=== PATIENT | male | born 1950 | race Caucasian/White ===

== ENCOUNTER → 2023-06-22 07:51 | Outpatient (CLI) | payer OTHER, SELFPAY ==
[2023-06-22 09:33] LABS: Appearance Urine UA CLEAR; Bilirubin Urine UA NEGATIVE (NEGATIVE); Color Urine UA YELLOW; Glucose Urine UA NEGATIVE (Negative); Ketones Urine UA NEGATIVE (NEGATIVE); Leukocyte Esterase Urine UA NEGATIVE (NEGATIVE); Nitrite Urine UA NEGATIVE (Negative); Occult Blood Urine UA NEGATIVE (Negative); Protein Urine UA NEGATIVE (Negative); Specific Gravity Urine UA 1.025 (1.000-1.035); Urobilinogen Urine UA 0.2 E.U./dL (0.2); pH Urine UA 5.5 (4.5-8.0)
[2023-06-22 09:36] LABS: Add Manual Diff / Slide Review NO; Basophils Absolute Auto 0 /uL (0-100); Basophils Percent Auto 0.5 % (0-2); Eosinophils Absolute Auto 100 /uL (0-450); Eosinophils Percent Auto 1.5 % (2-4); Hematocrit 44.2 % (41-53); Hemoglobin 15.4 g/dL (13.5-17.5); Lymphocytes Absolute Auto 2300 /uL (1100-4500); Lymphocytes Percent Auto 33.6 % (25-40); Mean Corpuscular HGB Conc 34.8 % (30-36); Mean Corpuscular Hemoglobin 30.9 PG (26-34); Mean Corpuscular Volume 88.9 fL (80-100); Monocytes Absolute Auto 700 /uL (0-900); Monocytes Percent Auto 10.5 % (3-14); Neutrophils Absolute Auto 3600 /uL (1500-7000); Neutrophils Percent Auto 53.9 % (50-75); Platelet Count 228 X10^3/uL (150-400); Red Blood Cell Count 4.98 X10^6/uL (4.5-5.9); Red Cell Distribution Width 13.1 % (11.6-14.8); White Blood Cell Count 6.8 X10^3/uL (4.5-11.0)
[2023-06-22 09:43] LABS: Hemoglobin A1C% w Est Avg Glu 5.4 % (4.0-6.0)
[2023-06-22 09:44] LABS: Bacteria Urine None Seen; Culture Indicated Urine Cult Not Indicated; Hyaline Casts Urine 0-1/LPF; Mucus Urine 2+ (Negative); RBC Urine None Seen (0-5/HPF); Squamous Epithelial Cell Urine 0-1 /HPF (0-5/HPF); WBC Urine None Seen (0-5/HPF)
[2023-06-22 09:56] LABS: Blood Urea Nitrogen 16 mg/dL (9-20); Calcium 9.9 mg/dL (8.4-10.2); Carbon Dioxide 26 mmol/L (22-32); Chloride 104 mmol/L (98-107); Estimated Glomerular Filt Rate > 60 mL/min (>60); Glucose 91 mg/dL (80-110); HEMOLYSIS 19 (0-50); Sodium 139 mmol/L (137-145)
== END ==
PROVIDERS: PCP Family Medicine; Referring Provider Orthopaedic Surgery; Visit Provider Orthopaedic Surgery
DX: Z01.818 Encounter for other preprocedural examination (principal); R73.9 Hyperglycemia, unspecified; Z01.812 Encounter for preprocedural laboratory examination; M25.551 Pain in right hip; N39.0 Urinary tract infection, site not specified
CPT/HCPCS: 36415; 80048; 81001; 83036; 85025; 93005; 93010

== ENCOUNTER 2024-01-26 09:01 | Day surgery (SDC) | payer MEDICARE, SELFPAY ==
[2024-01-18 09:33] VITALS: BMI 31.0
[2024-01-26] VITALS (12 sets, daily range): BP systolic 107–134; BP diastolic 72–88; PULSE 59–76; RESP 9–19; TEMP 35.7–36.7; O2SAT 94–99; BMI 29.9
--- NOTE | 2024-01-26 | DI.RAD.S_ITS ---
PROCEDURE: XR HIP W PEL IF DONE RT 2V INDICATIONS: RIGHT HIP TECHNIQUE: AP pelvis and lateral view of the hip acquired. COMPARISON: [facility], CR, XR HIP W PEL IF DONE RT 2V, 01/26/2024, 12:00. FINDINGS: Bones: Patient is status post right hip arthroplasty, with hardware components in expected positions. The hip joint appears congruent. The visualized bony structures appear intact. Left hip moderate arthritic changes Soft tissues: Overlying postoperative changes are noted. No suspicious soft tissue densities. IMPRESSION: Expected post-operative appearance of a hip arthroplasty. Approved by: Jak Belle M.D. on 01/26/2024 at 14:02
--- NOTE | 2024-01-26 07:53 | DI.RAD.S_ITS ---
PROCEDURE: XR HIP W PEL IF DONE RT 2V INDICATIONS: bleeding TECHNIQUE: 4 intraoperative views of the right hip. COMPARISON: [facility], CR, XR HIP W PEL IF DONE RT 2V, 01/26/2024, 13:33. [facility], CR, XR PELVIS WITH LATERAL HIP RIGHT, 01/08/2024, 10:52. FINDINGS: Right hip arthroplasty projects in the expected location. IMPRESSION: Intraoperative guidance provided. Dictated by: Madan Mederos M.D. on 01/26/2024 at 20:06 Approved by: Madan Mederos M.D. on 01/26/2024 at 20:08
[2024-01-26] MEDS: ACETAMINOPHEN 325 MG TABLET 975 MG PO (09:24)
[2024-01-26] MEDS: LACTATED RINGERS 1,000 ML 42 ML IV ×2 (09:24→11:44)
[2024-01-26] MEDS: CELECOXIB 200 MG CAPSULE PO (09:25)
[2024-01-26] MEDS: VANCOMYCIN 1,000 MG/200 ML PIGGYBACK 200 MG IV (09:26)
--- NOTE | 2024-01-26 09:45 | PM.PREOP ---
Pre-operative Note Interval Note History & Physical reviewed/Exam performed by Physician: Yes Changes to H&P: No
--- NOTE | 2024-01-26 09:45 | PM.OP.1 ---
Operative Date/Time/Diagnoses Date of procedure: 01/26/24 Time of procedure: 11:20 Pre-op diagnosis: right hip OA Post-op diagnosis: same Procedure & Clinicians Procedure: Right total hip arthroplasty anterior approach Same procedure as scheduled: Yes Indications: The patient has had progressively worsening right hip pain with radiographic changes consistent with arthritis. Non-operative management has failed and the patient has requested total hip replacement. The risks, benefits and alternatives to surgery were discussed with the patient prior to proceeding. Risks discussed included, but were not limited to, failure to relieve pain, leg length discrepancy, dislocation, stiffness, infection, nerve damage, deep venous thrombosis, pulmonary embolism, stroke, coma, heart attack, permanent paralysis and , as well as the potential need for eventual revision of the prosthetic. Surgeon: Kelly Solor[facility] [employer] Assistant: Phu Romero Anesthesia Type: General and Spinal Operative Notes Findings: Severe right hip OA, adequate stability, adequate bone Closure Type: primary Specimen(s): none sent Prosthetic devices, grafts, tissues, transplants, or devices: Solorzano and nephew 60 R3, neutral poly liner,one 6.5 mm screw, polar stem size 3 standard offset with collar, 40 by +0 [facility], Estimated Blood Loss (mL): 250 Blood products transfused: none Procedure in detail: The patient was brought to the operating room. Patient was carefully positioned in the supine position. Time-out was performed and antibiotics were given. Anesthesia was induced. He was positioned in the on the table in order to allow hyperextension of the hip. The right lower extremity was prepped and draped in a standard sterile fashion. An anterior right hip incision was made 1 fingerbreadth lateral to the anterior superior iliac spine and extended distally towards the greater trochanter. Dissection was carried out through skin and subcutaneous tissues. Superficial hemostasis was achieved. The fascia over the tensor fascia lio was defined and incised with a knife. Two Allis clamps were used to grasp the fascia. Tensor fascia lio was retracted laterally. A gelpi retractor was placed. Dissection was carried out down along the neck. The circumflex vessels were carefully identified and cauterized with the Aqua Mantis. A PA was used during the procedure was essential for intraoperative retraction safe implantation of the components. There was good visualization of the femoral neck. A Cobra was placed superior to the neck and the gluteus fibers were carefully stripped from that superior aspect of the capsule. A 2nd retractor was placed along the inferior aspect of the neck. The rectus insertion along the capsule was partially released. A 3rd retractor that was then gently placed over the rim of the acetabulum under the rectus. Capsule was carefully incised and released from the intertrochanteric line circumferentially superior to the mid sagittal line and inferiorly to the mid sagittal line until the lesser trochanter was palpable. A tag stitch was placed both in the superior and inferior limb of the capsular insertion. Along the acetabulum capsule was also released up to the mid sagittal 12:00 position. A portion of the labrum was resected. A saw was used to perform an osteotomy at the level of the intertrochanteric line and the junction of the superior femoral neck leaving approximately 1 finger breath of residual inferior neck above the lesser trochanter. A 2nd cut was made along the femoral neck at the base of the head and a napkin ring of neck was removed. Corkscrew was placed in the femoral head and the head was removed without difficulty. Retractors were then repositioned around the acetabulum. Residual labrum was resected and additional osteophytes were removed. A reamer that was 4 mm below the templated size was placed by hand in the acetabulum and it was reamed to centralize the acetabulum. It was then reamed up to 2 under the templated size and fluoroscopy was brought in to confirm the position of the reaming and depth of reaming. I reamed 1 under the anticipated size. A trial cup was placed and noted that it was appropriately sized and fluoroscopy confirmed position and depth. The component was open and inserted without difficulty fluoroscopic imaging was used to confirm that the cup had been adequately seated and was well positioned. It was further stabilized with a single screw. Neutral poly liner was placed. The cup was tested and noted to be stable. Attention was then directed to the femur. The femur was gently hyperextended additional capsular release was performed as needed in order to allow adequate visualization of the proximal femur with elevation of the femur. Patient was placed in a hyperextended slightly adducted position with maximum external rotation. Box osteotome was used to check for any residual neck as well as sclerotic bone along the trochanter. [place] pepper was placed in the femur. Additional broaching was performed. Canal finder was used to determine the alignment of the canal and position. Size 1 broach was placed. The canal was then appropriately broached up to the templated size as long as there was adequate stability of the broach and serial advancement of the broach without excessive impingement. Specific attention was directed at avoiding varus attempting to direct the distal aspect of the broach more anteriorly and avoiding excessive anteversion. Trial reduction showed acceptable range of motion, good stability, no posterior impingement, sabianist of leg length and appropriate lateral shuck. I also hyperflexed the hip and checked that there was no impingement anteriorly and there was good stability with flexion, adduction and internal rotation. Marcaine and Exparel were injected.. The stem was placed without difficulty. Repeat trial reduction and x-ray showed acceptable overall position, length, and no evidence of the femoral fracture. Final head was placed. Wound was meticulously irrigated with normal saline. The hip was reduced and additional Exparel and Marcaine were injected. The capsule was closed with interrupted nonabsorbable sutures. The fascia of the tensor was closed with interrupted and running Vicryl. No drain was placed. Any tensor fascia lio muscle that appeared to be contused or injured which was a minimal amount was carefully resected. Capsule around the tensor was injected with Exparel and Marcaine. The skin was closed with barbed stitches for the subcutaneous tissue and skin. We also used surgical glue. The wound was dressed sterilely. Brief Betadine soak was also used and was meticulously irrigated with normal saline. Patient was transferred to recovery room in satisfactory condition. Complications: none Post-operative Condition: stable Disposition: same day surgery Plan for aftercare: The patient will be maintained on a standard total hip replacement protocol with weight bearing as tolerated and anterior hip precautions. The patient will receive Aspirin and sequential compression devices for DVT prophylaxis. The patient will be discharged home when safe for the home environment.
--- NOTE | 2024-01-26 10:11 | SUR.OPER ---
Supine on padded Carroll table with bilateral legs secured in padded positioning boots and suspended in positioning spars, operative leg in traction per surgeon. Head on one pillow. Arm on non-operative side secured on padded armboard <90 degrees abduction. Arm on operative side padded and resting across chest then secured with tape over sheet. Padded perineal post in place per surgeon.
[2024-01-26] MEDS: CEFAZOLIN 2 GM/100 ML PREMIX 100 ML IV ×2 (10:57→18:14)
[2024-01-26] MEDS: TRANEXAMIC ACID 1,000 MG VIAL 2000 MG INJ ×2 (11:04→13:01)
[2024-01-26] MEDS: BUPIVACAINE 0.25% (PF) 60 ML, EPINEPHrine 0.3 MG INJ (11:13)
[2024-01-26] MEDS: BUPIVACAINE LIPOSOME 266 MG/20 ML VIAL INJ (13:00)
--- NOTE | 2024-01-26 13:56 | SUR.PHASEI ---
Report called to Kelly Samano
--- NOTE | 2024-01-26 14:13 | SUR.PHASEI ---
Patient transferred to the floor with his belongings bag, CPAP, hearing aids. Bedside report given to Kelly. VS stable. IV patent. Right hip dressing CDI.
--- NOTE | 2024-01-26 14:55 | PT.IIE ---
Current Diagnoses Unilateral primary osteoarthritis, right hip (01/26/24) Surgery Performed Operation Date: 01/26/24 10:45 Actual Procedures p Total Hip Arthroplasty/Anterior Approach(Right) - Kelly Solorzano MD Surgical History (Last Reviewed 01/26/24 @ 09:31 by Delia Thomas, RN) Hx of arthroscopy of left knee Medical History (Last Reviewed 01/26/24 @ 09:31 by Delia Thomas, RN) Enlarged prostate Hearing impaired History of COVID-19 (~2020) HLD (hyperlipidemia) HTN (hypertension) RADHA on CPAP Osteoarthritis TIA (transient ischemic attack) (06/2023) Physical Therapy Inpatient Evaluation/Re-Eval M1 PT/OT-IP Prior Functional Status Start: 01/26/24 16:02 Freq: NEEDED Status: Active Protocol: Document 01/26/24 14:55 AB (Rec: 01/26/24 16:28 AB [id number]) Medical Review Prior Functional Status Medical History Reviewed Yes Communication able to make needs known Mobility and Gait pt stated that he was independent with all mobilities and ambulation without AD Social History Household Members spouse Living Arrangements House Number of Floors (Floors) One Floor Number of Stairs To Enter/Railing? 1 step to enter Home Environment Standard Height Toilet,Tub/ Shower Home Equipment Front Wheel Walker,Straight Cane,Raised Toilet Seat w/ Armrests,Tub Transfer Bench, Hand Held Shower M2 PT-IP Current Condition Start: 01/26/24 16:02 Freq: NEEDED Status: Active Protocol: Document 01/26/24 14:55 AB (Rec: 01/26/24 16:28 AB [id number]) Physical Therapy Current Condition Current Condition Evaluation Date 01/26/24 Treatment Diagnosis s/p R RADHA anterior; difficulty in walking Onset Date 01/26/24 M3 PT-IP Subjective Start: 01/26/24 16:02 Freq: NEEDED Status: Active Protocol: Document 01/26/24 14:55 AB (Rec: 01/26/24 16:28 AB [id number]) Subjective Physical Therapy Visit Type Type Initial Evaluation Visit Start Time 14:55 Visit Stop Time 15:40 Number of SLOT MACHINE REPAIRER Visits 0 Physical Therapy Visit Comments Patient Comments agreeable to do PT Therapy Pain Assessment Pain When Pain Assessed At Rest Pain Present Pain Present Denied Pain M4 PT-IP Mobility and Gait Start: 01/26/24 16:02 Freq: NEEDED Status: Active Protocol: Document 01/26/24 14:55 AB (Rec: 01/26/24 16:28 AB [id number]) PT-Bed Mobility Assessment Supine to Sit Supine to Sit Standby Assistance PT-Transfer Assessment Sit to and From Stand Sit to and from Stand Minimal Assistance,1 Person Assistance,Use of Upper Extremities Equipment Transfer Assistive Device Gait Belt,Front Wheeled Walker Orthotic/Prosthetic Devices or Brace: No Transfers Transfer Destination Chair Transfer Technique ambulated Transfer Ability Level of Assist Moderate Assistance,1 Person Assistance,Use of Upper Extremities Comments Mobility Comments pt supine in bed and spouse in room. pt agreed to do PT. pt alert but with confusion and requires increase time to respond to questions and instructions. pt's spouse answered most of PT's questions. obtained PLOF and home set up. post-op folder provided and reviewed with pt. educated pt and spouse regarding anterior hip precautions for RLE. pt unable to recall precautions even after education. pt is impulsive and requires one step instructions with all tasks and max cues for hip precautions. BP: 133/88 UT 60. pt completed supine to sit SBA . able to sit on EOB SBA. completed sit to stand min A and max cues. pt ambulated to the chair ~ 12 ft using FWW mod A and max cues. pt agreed to sit up on the chair. positioned pt on the chair. call light and table placed within reach. informed spouse regarding caregiver training and agreed. setup at ~9am tomorrow. Gait Assessment Gait Gait Assistance Required: Moderate Assistance,1 Person Assist Distance (Feet) 12 Able to Maintain Weight Bearing Status Yes During Gait Assistive Devices Assistive Device Gait Belt,Front Wheeled Walker Orthotic/Prosthetic Devices or Brace: No Gait Deviations General Gait Pattern Decreased Stride Length, Decreased Feet Clearance Factors Limiting Gait Function Factors Limiting Gait Function Decreased Activity Tolerance, Decreased Strength,Difficulty Following Directions,Limited Range of Motion,Pain,Poor Balance,Poor Safety Awareness PT-Balance Assessment Sitting Balance and Reactions Static Sitting Balance Ability Good Dynamic Sitting Balance Ability Good Standing Balance and Reactions Static Standing Balance Ability Fair Dynamic Standing Balance Ability Fair Device Used FWW M5 PT-IP Objective Assessments Start: 01/26/24 16:02 Freq: NEEDED Status: Active Protocol: Document 01/26/24 14:55 AB (Rec: 01/26/24 16:28 AB [id number]) Orientation Orientation/Cognition Level of Alertness Alert Orientation Name Language Function Ability Hard of Hearing Safety Awareness Decreased Safety Awareness Memory Description Short Term Impaired Comments with confusion Strength Lower Extremity Strength Assessment Within Functional Limits Muscle Tone Muscle Tone WNL Yes M6 PT-IP Treatment Start: 01/26/24 16:02 Freq: NEEDED Status: Active Protocol: Document 01/26/24 14:55 AB (Rec: 01/26/24 16:28 AB [id number]) Physical Therapy Treatment Education Education Provided Precautions,Weight Bearing Status,Post-Op Packet,Safety M7 PT-IP Assessment and Plan Start: 01/26/24 16:02 Freq: NEEDED Status: Active Protocol: Document 01/26/24 14:55 AB (Rec: 01/26/24 16:28 AB [id number]) PT Summary Assessment and Plan Potential Rehabilitation Potential Fair Status of Condition at Evaluation Evolving Summary Impairments Pain,ROM,Strength,Balance, Coordination,Cognition,Bed Mobility,Transfers,Gait, Activity Tolerance Assessment Summary Pt is a 73 y/o M s/p R RADHA anterior approach POD 0. pt has R hip anterior precautions and is WBAT. pt requiring min to mod A with mobility but max cues needed for precautions and safety. pt with decrease carryover of precautions education and even with one step instructions provided , was not able to consistently follow instructions. caregiver training set up for tomorrow at ~ 9 am. will continue to assess. Goals Bed Mobility Goal Standby Assistance Transfer Goal Standby Assistance,Front Wheeled Walker Gait Goal Standby Assistance,Front Wheel Walker Gait Distance 200 Other Goals improve bed mobility, transfers, ambulation using FWW ~ 300 ft mod I up/down 1 step using FWW SBA Days to Meet Goals 5 Frequency of Treatment Frequency Of Treatment Twice a Day Treatment Plan Physical Therapy Treatment Plan Bed Mobility Training,Transfer Training,Gait Training, Therapeutic Exercise,Balance Retraining,Post Op Education, Discharge Planning,Hot or Cold Pack,Neuromuscular Re-ed, Coordination Retraining,Manual Therapy Other Recommendations and Next Treatment caregiver trainin01/27/24 ~ Focus 9 am Precautions Anterior Hip Precautions No Hip Extension,No Hip External Rotation Weight Bearing Status Weight Bearing Status Weight Bear as Tolerated Allowed Weight Bearing Amount (enter % RLE WBAT or #) (%) Recommendations To Nursing Amount of Assist Needed 1 Person Assist Discharge Recommendations PT Discharge Recommendations Home with 24/7 Assist Available,Home Health, Outpatient PT Transportation Needs at Discharge Private Vehicle,Wheelchair/ Cabulance
--- NOTE | 2024-01-26 15:04 | PC.NURSE ---
Pt to room 219 via bed from PACU. Pt is awake and alert. IVF infusing as ordered. SCD's on and running. Spouse Lucia is at the bedside. Bed alarm on for safety. Pt denies pain, nausea, or shortness of breath. O2 sat 99% on RA. Pt oriented to room, call light, bed controls and tv controls. Pt agrees to call for assistance as needed and to not get out of bed without help.
--- NOTE | 2024-01-26 16:00 | OT.IP.EVAL ---
Current Diagnoses Unilateral primary osteoarthritis, right hip (01/26/24) Surgery Performed Operation Date: 01/26/24 10:45 Actual Procedures p Total Hip Arthroplasty/Anterior Approach(Right) - Kelly Solorzano MD Past Medical History (Last Reviewed 01/26/24 @ 09:31 by Delia Thomas, RN) Enlarged prostate Hearing impaired History of COVID-19 (~2020) HLD (hyperlipidemia) HTN (hypertension) RADHA on CPAP Osteoarthritis TIA (transient ischemic attack) (06/2023) Surgical History (Last Reviewed 01/26/24 @ 09:31 by Delia Thomas, RN) Hx of arthroscopy of left knee Occupational Therapy Inpatient Evaluation/Re-Eval M1 PT/OT-IP Prior Functional Status Start: 01/26/24 16:02 Freq: NEEDED Status: Active Protocol: Document 01/26/24 14:55 AB (Rec: 01/26/24 16:28 AB [id number]) Medical Review Prior Functional Status Medical History Reviewed Yes Communication able to make needs known Mobility and Gait pt stated that he was independent with all mobilities and ambulation without AD Social History Household Members spouse Living Arrangements House Number of Floors (Floors) One Floor Number of Stairs To Enter/Railing? 1 step to enter Home Environment Standard Height Toilet,Tub/ Shower Home Equipment Front Wheel Walker,Straight Cane,Raised Toilet Seat w/ Armrests,Tub Transfer Bench, Hand Held Shower M1 PT/OT-IP Prior Functional Status Start: 01/26/24 16:22 Freq: NEEDED Status: Active Protocol: Document 01/26/24 16:23 [facility] (Rec: 01/26/24 16:36 [facility] [id number]) Medical Review Prior Functional Status Communication Pt slow to respond and initiate with his thinking. Mobility and Gait Pt did not use a device but had pain. Activities of Daily Living and IADL's Pt had pain for ADL and IADL needs. Prior Functional Level (Other details) Pt has recent history of TIA 06/25 and at time slower cognitively per . Social History Household Members spouse Living Arrangements House Number of Floors (Floors) Two Floors Number of Stairs To Enter/Railing? Only a threshold to enter the house. Pt has a step to get into his truck. Home Environment Standard Height Toilet,Tub/ Shower Home Equipment Front Wheel Walker,Raised Toilet Seat w/Armrests,Tub Transfer Bench,Hand Held Shower,Leg Data Warehousing Manager,Long Handled Sponge,Long Handled Shoe Horn ,Field Cashier,Sock Aid Additional Social History Comment Pt has a supportive to assist. M2 OT-IP Current Condition Start: 01/26/24 16:22 Freq: Status: Active Protocol: Document 01/26/24 16:23 [facility] (Rec: 01/26/24 16:36 [facility] [id number]) Occupational Therapy Current Condition Current Condition Evaluation Date 01/26/24 Treatment Diagnosis S/P R RADHA Anterior approach Diagnosis Onset Date 01/26/24 Post Operative Precautions Anterior Hip Precautions No Hip Extension,No Hip External Rotation M3 OT- IP Subjective and Pain Start: 01/26/24 16:22 Freq: Status: Active Protocol: Document 01/26/24 16:23 [facility] (Rec: 01/26/24 16:36 [facility] [id number]) OT- Subjective Occupational Therapy Visit Type Type Initial Evaluation Visit Start Time 15:35 Visit Stop Time 16:27 Occupational Therapy Visit Comments Patient Comments Pt agreed to get up and pt's present. Patient/Caregiver Goals To go home. OT Pain Assessment Pain When Pain Assessed At Rest Pain Present Pain Present Pain Reported Location Left Hip Intensity 7 Scale Used Numeric (0 - 10) M4 OT- IP ADL's Start: 01/26/24 16:22 Freq: Status: Active Protocol: Document 01/26/24 16:23 [facility] (Rec: 01/26/24 16:36 [facility] [id number]) OT [id number] Comments OT Self-Feeding Comments Not at meal time. OT ADL-Grooming Comments OT Grooming Comments Not performed. OT ADL-Oral Care Comments Oral Care Comments Not performed. OT ADL-Dressing General Eval Lower Body Dressing Ability Minimal Assistance,Maximum Assistance Comments OT Dressing Comments Able to practice use of hose inspector and sock aid for LB dressing needs. Educated pt to be mindful of his RLE postioning needs for ADL's. OT ADL-Toileting Comments OT Toileting Comments Suggested to use a urinal at night or have his assist him to the bathroom. OT ADL-Bathing Comments OT Bathing Comments Went over how the tub bench works and how to get in and out with his . Also suggested a HHSP with a on/off switch may be best. Educated of covering the bandage for showering needs. M5 OT- IP IADL's Start: 01/26/24 16:22 Freq: Status: Active Protocol: Document 01/26/24 16:23 [facility] (Rec: 01/26/24 16:36 [facility] [id number]) OT-Instrumental Activities of Daily Living Deficits IADL Deficits Identified Deficits Home Safety Awareness Awareness of Need for Assistance at Home Decreased Awareness Home Safety Comments Pt is a bit impulsive and still groggy at this time. Medication Management Medication Management Caregiver Administers Money Management Money Management Caregiver Provides Assistance Meal Preparation Meal Preparation Caregiver Provides Assist Planning Management It Specialist Planning Management It Specialist Caregiver Provides Assist M6 OT- IP Functional Cognition Start: 01/26/24 16:22 Freq: Status: Active Protocol: Document 01/26/24 16:23 [facility] (Rec: 01/26/24 16:36 [facility] [id number]) Cognitive Factors Limiting Selfcare Function Cognitive Ability Level of Alertness Confusional State Patient Orientation Name Attention Span Ability Capable of Focused Attention, Unable to Sustain Attention Ability to Follow Commands Able to Follow One Step Commands with Increased Time, Able to Follow One Step Commands with Repetition Memory Description Short Term Impaired Cognitive Comments Cognitive Assessment Comments Pt is a bit groggy from surgery today, impulsive and needing cues to recall his hip precautions and FWW safety. OT- Vision and Hearing OT- Hearing Assessment OT- Hearing Assessment Hearing Impaired,Use of Hearing Aids OT- Vision Assessment Visual Acuity Glasses For Reading,Contact Lenses Visual Attentiveness WFL Occular Pursuits WFL M7 OT- IP Mobility and Balance Start: 01/26/24 16:22 Freq: Status: Active Protocol: Document 01/26/24 16:23 [facility] (Rec: 01/26/24 16:36 [facility] [id number]) OT-Transfer Assessment Sit to and From Stand Sit to and from Stand Minimal Assistance Transfers Transfer Ability Minimal Assistance,Moderate Assistance Technique Transfer Destination Car Transfer Technique Stand Step Pivot Devices Transfer Assistive Devices Gait Belt,Front Wheeled Walker Comments Mobility Comments SHEELA to stand to the FWW. Able to educated his to crescencio/ doff the gait belt. At this time pt still simone at his RLE and cues to tighten his quad as pt leaning to the right with the FWW. MODA overall with the FWW especially due to poor ssafety awareness at this time. OT- Balance Assessment Sitting Balance and Reactions Static Sitting Balance Ability Good Dynamic Sitting Balance Ability Good Standing Balance and Reactions Static Standing Balance Ability Fair Dynamic Standing Balance Ability Poor M8 OT- IP Objective Assessments Start: 01/26/24 16:22 Freq: Status: Active Protocol: Document 01/26/24 16:23 [facility] (Rec: 01/26/24 16:36 [facility] [id number]) OT Gross Range of Motion Upper Extremity Range of Motion Assessment Within Functional Limits OT Strength Upper Extremity Strength Assessment Within Functional Limits M9 OT- IP Assessment and Plan Start: 01/26/24 16:22 Freq: Status: Active Protocol: Document 01/26/24 16:23 [facility] (Rec: 01/26/24 16:36 [facility] [id number]) OT Summary Assessment and Plan Potential Rehabilitation Potential Excellent Analytic Complexity at Evaluation Low Summary OT Impairments Pain,Strength,Balance, Functional Cognition, Functional Mobility,Grooming, Dressing,Toileting,Bathing, Toilet Transfers,Shower Transfers,Activity Tolerance Progress Towards Goals Progressing Toward Goals,Slow Progress due to Medical Issues Assessment Summary Pt low complexity and still groggy and weak from surgery today. Able to initiate caregiver training with pt's . Pt will benefit from more practice and also caregiver for his as well . Pt to go home with 24/7 available assist and outpt PT. Goals Grooming Goal Independent Dressing Goal Standby Assistance Toileting Goal Standby Assistance Bathing Goal Standby Assistance Toilet Transfer Goal Independent Shower Transfer Goal Standby Assistance Patient/Caregiver Education Goal Demonstrate Energy Conservation and Pacing, Caregiver Independent Assisting Patient Days to Meet Goals 10 Frequency of Treatment Frequency Of Treatment Once a Day Treatment Plan OT Treatment Plan ADL Training,Functional Cognition Training,Functional Mobility,Patient/Family Education,Discharge Planning Other Treatment Recommendations and Next Practice anterior precautions Treatment Focus for ADL needs. Discharge Recommendations OT Discharge Recommendations Home with 24/7 Assist Available,Outpatient PT Transportation Needs at Discharge Private Vehicle
[2024-01-26] MEDS: ATORVASTATIN 20 MG TABLET 80 MG PO (16:39)
[2024-01-26] MEDS: OXYCODONE IR 5 MG TABLET PO ×2 (18:48→21:49)
[2024-01-26] MEDS: LACTATED RINGERS 1,000 ML 100 ML IV (20:12)
[2024-01-26] MEDS: DOCUSATE 100 MG CAPSULE PO (21:07)
[2024-01-26] MEDS: TAMSULOSIN 0.4 MG CAPSULE 0.8 MG PO (21:07)
[2024-01-26] MEDS: ACETAMINOPHEN 325 MG TABLET 650 MG PO (21:07)
[2024-01-26] MEDS: ASPIRIN EC 81 MG TABLET PO (21:07)
[2024-01-27] VITALS: BP 119/68; PULSE 73; RESP 18; TEMP 36.1; O2SAT 96
[2024-01-27] MEDS: OXYCODONE IR 5 MG TABLET PO ×3 (00:49→07:54)
[2024-01-27] MEDS: CEFAZOLIN 2 GM/100 ML PREMIX 100 ML IV (02:09)
[2024-01-27] MEDS: ACETAMINOPHEN 325 MG TABLET 650 MG PO (04:11)
[2024-01-27 05:57] VITALS: BP 111/67; PULSE 70; RESP 17; TEMP 36.2; O2SAT 96
[2024-01-27 06:42] LABS: Hematocrit 35.5 % (41-53); Hemoglobin 12.4 g/dL (13.5-17.5)
--- NOTE | 2024-01-27 07:10 | P.DS_ITS ---
History of Present Illness History of Present Illness Date Patient Seen: 01/27/24 Time Patient Seen: 07:10 Chief complaint: Hip pain Narrative: Patient states his hip pain was moderate to severe overnight. Patient patient's pain is currently [id number]. Patient has his home to help him. Denies any fever chills. No nausea or vomiting. Discharge Providers Provider Discharge Date: 01/27/24 Primary care physician: Richard Beal MD Consults: 01/26/24 07:52 Consult to Anesthesiology Routine Comment: Consulting Provider: Anesthesiologist Reason for consultation: Regional block for post operative pain control 01/26/24 14:02 Consult to Discharge Planning Routine Comment: Consult to Occupational Therapy Evaluate & Treat Comment: Physician Instructions: Evaluate and treat Consult to Physical Therapy Evaluate & Treat Comment: Physician Instructions: post op RADHA protocol Discharge provider: Phu Romero PA-C Summary Hospital Course Discharge Diagnosis: Right hip osteoarthritis Hospital Course: Right total hip arthroplasty anterior approach Same procedure as scheduled: Yes Indications: The patient has had progressively worsening right hip pain with radiographic changes consistent with arthritis. Non-operative management has failed and the patient has requested total hip replacement. The risks, benefits and alternatives to surgery were discussed with the patient prior to proceeding. Risks discussed included, but were not limited to, failure to relieve pain, leg length discrepancy, dislocation, stiffness, infection, nerve damage, deep venous thrombosis, pulmonary embolism, stroke, coma, heart attack, permanent paralysis and , as well as the potential need for eventual revision of the prosthetic. Surgeon: Kelly Solorzano Senior Sql Developer: Phu Romero Anesthesia Type: General and Spinal Operative Notes Findings: Severe right hip OA, adequate stability, adequate bone Closure Type: primary Specimen(s): none sent Prosthetic devices, grafts, tissues, transplants, or devices: Solorzano and nephew 60 R3, neutral poly liner,one 6.5 mm screw, polar stem size 3 standard offset with collar, 40 by +0 femoral head take care mark, Estimated Blood Loss (mL): 250 Blood products transfused: none Patient admitted for right total hip arthroplasty, anterior approach. Patient consented to the same. Patient had right total hip arthroplasty anterior approach January 26, 2024. Patient back in his room recovering well and as is stable condition. Patient is able to urinate on his own. He has his home to assist him. Patient will be on standard total hip protocol with anterior hip precautions. Patient will mobilize with physical therapy and be discharged home today if safe for home environment. Status at Discharge Cognitive/behavioral status at discharge: at baseline, oriented Functional status at discharge: uses cane/walker Overall status at discharge: patient is progressing back to baseline Exam Vital Signs (past 8 hours): - 01/27/24 00:00 01/27/24 05:57 Temperature 96.9 F L 97.1 F L Pulse Rate 73 70 Respiratory Rate 18 17 Blood Pressure 119/68 111/67 Pulse Oximetry 96 96 Oxygen Flow Rate 0 0 Oxygen Delivery Method Room Air Oxygen Flow Rate 0 Narrative Exam Narrative: 73-year-old male resting comfortably in bed in no apparent distress. Right hip dressing is clean, dry and intact. Motor functions intact bilateral lower extremities. Sensation grossly intact to light touch bilateral lower extremities. Const General: cooperative and comfortable Nutritional Appearance: average body habitus Orientation: alert Resp Effort & Inspection: normal respiratory effort and able to speak in complete sentences Objective Labs 01/27/24 05:40 Labs: Laboratory Results - last 24 hr 01/27/24 05:40 Hgb 12.4 L Hct 35.5 L PFSH Medical History History of COVID-19 (~2020) Osteoarthritis HLD (hyperlipidemia) HTN (hypertension) Hearing impaired RADHA on CPAP Enlarged prostate TIA (transient ischemic attack) (06/2023) Surgical History Hx of arthroscopy of left knee Social History household members: spouse Smoking Status: Never smoker alcohol intake: current Discharge Assessment & Plan Assessment and Plan Assessment: Patient progressing as expected status post right total hip arthroplasty, anterior approach Plan of Treatment: Multimodal pain management Aspirin for DVT prophylaxis Weightbearing as tolerated, anterior hip precautions Follow up in 2 weeks as scheduled Discharge home today after physical therapy if safe for home environment Discharge Plan Discharge orders & Medications Discharge Orders: Discharge (Order); Ordered 01/27/24 Ordered By: Phu Romero Prescriptions: New acetaminophen 325 mg Tablet 650 mg PO Q6H PRN (Reason: Fever/Mild Pain (1-3)) Qty: 60 0RF aspirin 81 mg Tablet,Delayed Release (Dr/Ec) 81 mg PO BID Qty: 60 0RF docusate sodium 100 mg Capsule 100 mg PO BID Qty: 20 0RF ibuprofen 400 mg Tablet 400 mg PO Q4H PRN (Reason: Pain, Mild (1-3)) Qty: 60 0RF oxycodone 5 mg tablet 5 mg PO Q4H PRN (Reason: pain) Qty: 40 0RF Continued atorvastatin 80 mg Tablet 80 mg PO QPM cetirizine [Zyrtec] 10 mg Tablet 10 mg PO DAILY tamsulosin 0.4 mg Capsule 0.8 mg PO BEDTIME lisinopril 10 mg Tablet 10 mg PO DAILY finasteride 5 mg Tablet 5 mg PO DAILY acetaminophen 325 mg Capsule 325 mg PO Q4-6H PRN (Reason: Pain) Discontinued aspirin [Aspir-81] 81 mg Tablet,Delayed Release (Dr/Ec) 81 mg PO DAILY Follow up/Referrals: Richard Beal MD [Primary Care Provider] - Kelly Solorzano MD [Physician] - 02/08/24 11:00 am (Follow up w/ Ely Helms PA-C, at [facility] in [place].) Diet/Activity/Treatments Diet: Diet as Tolerated Activity: Weightbearing as tolerated. Anterior hip precautions. Skin/Wound/Dressing Care Report to your healthcare provider any signs of infection, such as:: chills, fever, night sweats, unusual drainage and unusual redness Dressing: May shower. Leave dressing in place until follow up in office. No bathing or otherwise soaking incision. Call the office if the dressing becomes saturated inside. Visit Report/Discharge Packet Instructions: DI for Prescription Opioid Use Stand Alone Forms: Patient Portal/API, Surgery Discharge Discharge Data Primary Care Provider: Richard Beal Attending Provider: Kelly Solorzano Quality VTE Deep Vein Thrombosis/Pulmonary Embolism Present on Admission: No
[2024-01-27] MEDS: DOCUSATE 100 MG CAPSULE PO (07:53)
[2024-01-27] MEDS: IBUPROFEN 400 MG TABLET PO (07:53)
[2024-01-27] MEDS: ASPIRIN EC 81 MG TABLET PO (07:54)
[2024-01-27 08:00] VITALS: BP 150/88; PULSE 68; RESP 16; TEMP 36.2; O2SAT 97
[2024-01-27 08:16] VITALS: BP 150/88
[2024-01-27] MEDS: lisinopriL 10 MG TABLET PO (08:16)
[2024-01-27] MEDS: FINASTERIDE 5 MG TABLET PO (08:16)
[2024-01-27] MEDS: LORATADINE 10 MG TABLET PO (08:17)
--- NOTE | 2024-01-27 09:00 | PT.IPTN ---
Current Diagnoses Unilateral primary osteoarthritis, right hip (01/26/24) Surgery Performed Operation Date: 01/26/24 10:45 Actual Procedures p Total Hip Arthroplasty/Anterior Approach(Right) - Kelly Solorzano MD Physical Therapy Treatment Note M2 PT-IP Current Condition Start: 01/26/24 16:02 Freq: NEEDED Status: Active Protocol: Document 01/26/24 14:55 AB (Rec: 01/26/24 16:28 AB [id number]) Physical Therapy Current Condition Current Condition Evaluation Date 01/26/24 Treatment Diagnosis s/p R RADHA anterior; difficulty in walking Onset Date 01/26/24 M3 PT-IP Subjective Start: 01/26/24 16:02 Freq: NEEDED Status: Active Protocol: Document 01/27/24 09:00 AB (Rec: 01/27/24 12:54 AB [id number]) Subjective Physical Therapy Visit Type Type Treatment Note Visit Start Time 09:00 Visit Stop Time 10:05 Number of PEDIATRIC LPN Visits 0 Physical Therapy Visit Comments Patient Comments agreeable to do PT Therapy Pain Assessment Pain When Pain Assessed At Rest Pain Present Pain Present Pain Reported Location Right Hip Intensity 3 Scale Used increases with mobility Pain Management Techniques Apply Cold,Distraction, Modification of Treatment,Re- positioning,Timing of Activity with Medications M4 PT-IP Mobility and Gait Start: 01/26/24 16:02 Freq: NEEDED Status: Active Protocol: Document 01/27/24 09:00 AB (Rec: 01/27/24 12:54 AB [id number]) PT-Bed Mobility Assessment Supine to Sit Supine to Sit Moderate Assistance Sit to Supine Sit to Supine Maximum Assistance PT-Transfer Assessment Sit to and From Stand Sit to and from Stand Contact Guard Assistance,1 Person Assistance,Use of Upper Extremities Equipment Transfer Assistive Device Gait Belt,Front Wheeled Walker Orthotic/Prosthetic Devices or Brace: No Transfers Transfer Destination Bed,Chair Transfer Technique ambulated Transfer Ability Level of Assist Contact Guard Assistance,1 Person Assistance,Use of Upper Extremities Comments Mobility Comments pt sitting on the chair and agreeable to do PT. spouse in room for caregiver training. reviewed anterior hip precautions with pt and pt needed cues to recall. BP sitting on L UE: 89/58 rechecked: 86/52 ; RUE: 104/ 70. informed nurse caregiver training conducted and educated spouse on how to use safety belt and how to assist pt. spouse was able to put safety belt on pt and assisted pt with sit to stand. pt stood for a few minutes using FWW for support CGA. BP checked: 119/71. spouse ambulated pt in room ~ 15 ft using FWW CGA. pt sat on EOB. pt completed sit <>supine with max cues for techniques and requiring mod to max A and max cues. PT initially assisted pt and instructed spouse on how to assist pt. pt completed again with spouse assisting. educated pt and spouse regarding stair climbing. spouse ambulated pt to the platform step using FWW CGA. pt completed up/down platform step using FWW CGA and max cues. PT instructed and cued pt and spouse on how to complete. pt ambulated with spouse ~ 50 ft using fWW in the hallway CGA with emphasis on hip precautions taking smaller steps and slowing down . Reminded spouse to instruct pt sinc pt is having difficulty carryover his precautions. pt repeated up/ down platform step again using FWW with spouse assisting CGA . pt ambulated back to his room and requested to go back to bed. pt required max A for sit to supine and spouse was able to assist. positioned pt in bed. c/o increase R hip pain. nurse aware. call light and table placed within reach . educated pt and spouse with car transfers. pt and caregiver education : spouse requested to go through stair climbing techniques again and completed. Gait Assessment Gait Gait Assistance Required: Contact Guard Assist Distance (Feet) 50 Able to Maintain Weight Bearing Status Yes During Gait Assistive Devices Assistive Device Gait Belt,Front Wheeled Walker Orthotic/Prosthetic Devices or Brace: No Gait Deviations General Gait Pattern Decreased Feet Clearance Factors Limiting Gait Function Factors Limiting Gait Function Decreased Activity Tolerance, Decreased Strength,Difficulty Following Directions,Limited Range of Motion,Pain,Poor Balance,Poor Safety Awareness Stair Climbing Assessment Evaluation Level of Assist On Stairs Contact Guard Assistance Devices Stair Climbing Assistive Devices Front Wheel Walker Technique/Endurance Stair Climbing Direction Ascend and Descend Stair Climbing Technique Step to Step M5 PT-IP Objective Assessments Start: 01/26/24 16:02 Freq: NEEDED Status: Active Protocol: Document 01/26/24 14:55 AB (Rec: 01/26/24 16:28 AB [id number]) Orientation Orientation/Cognition Level of Alertness Alert Orientation Name Language Function Ability Hard of Hearing Safety Awareness Decreased Safety Awareness Memory Description Short Term Impaired Comments with confusion Strength Lower Extremity Strength Assessment Within Functional Limits Muscle Tone Muscle Tone WNL Yes M6 PT-IP Treatment Start: 01/26/24 16:02 Freq: NEEDED Status: Active Protocol: Document 01/27/24 09:00 AB (Rec: 01/27/24 12:54 [id number]) Physical Therapy Treatment Education Education Provided Precautions,Safety M7 PT-IP Assessment and Plan Start: 01/26/24 16:02 Freq: NEEDED Status: Active Protocol: Document 01/27/24 09:00 AB (Rec: 01/27/24 12:54 [id number]) PT Summary Assessment and Plan Potential Rehabilitation Potential Fair Summary Impairments Pain,ROM,Strength,Balance, Coordination,Sensation,Tone, Cognition,Bed Mobility, Transfers,Gait,Activity Tolerance Progress Towards Goals Slow Progress due to Activity Tolerance,Slow Progress - Other Assessment Summary caregiver training conducted and spouse was able to assist pt with mobility. pt plans to go home today. Goals Bed Mobility Goal Standby Assistance Transfer Goal Standby Assistance,Front Wheeled Walker Gait Goal Standby Assistance,Front Wheel Walker Gait Distance 200 Other Goals improve bed mobility, transfers, ambulation using FWW ~ 300 ft mod I up/down 1 step using FWW SBA Days to Meet Goals 5 Frequency of Treatment Frequency Of Treatment Twice a Day Treatment Plan Physical Therapy Treatment Plan Bed Mobility Training,Transfer Training,Gait Training, Therapeutic Exercise,Balance Retraining,Post Op Education, Discharge Planning,Hot or Cold Pack,Neuromuscular Re-ed, Coordination Retraining,Manual Therapy Precautions Anterior Hip Precautions No Hip Extension,No Hip External Rotation Weight Bearing Status Weight Bearing Status Weight Bear as Tolerated Allowed Weight Bearing Amount (enter % RLE WBAT or #) (%) Recommendations To Nursing Amount of Assist Needed 1 Person Assist Discharge Recommendations PT Discharge Recommendations Home with 23/02 Assist Available,Home Health, Outpatient PT Transportation Needs at Discharge Private Vehicle,Wheelchair/ Cabulance
--- NOTE | 2024-01-27 11:00 | OT.IP.TRT ---
Current Diagnoses Unilateral primary osteoarthritis, right hip (01/26/24) Surgery Performed Operation Date: 01/26/24 10:45 Actual Procedures p Total Hip Arthroplasty/Anterior Approach(Right) - Kelly Solorzano MD Occupational Therapy Treatment Note M2 OT-IP Current Condition Start: 01/26/24 16:22 Freq: Status: Active Protocol: Document 01/26/24 16:23 [facility] (Rec: 01/26/24 16:36 [facility] [id number]) Occupational Therapy Current Condition Current Condition Evaluation Date 01/26/24 Treatment Diagnosis S/P R RADHA Anterior approach Diagnosis Onset Date 01/26/24 Post Operative Precautions Anterior Hip Precautions No Hip Extension,No Hip External Rotation M3 OT- IP Subjective and Pain Start: 01/26/24 16:22 Freq: Status: Active Protocol: Document 01/27/24 11:26 [facility] (Rec: 01/27/24 11:40 [facility] [id number]) OT- Subjective Occupational Therapy Visit Type Type Treatment Note Visit Start Time 10:21 Visit Stop Time 11:15 Occupational Therapy Visit Comments Patient Comments Pt agreed to shower and his present for caregiver training. Patient/Caregiver Goals To go home. OT Pain Assessment Pain When Pain Assessed At Rest Pain Present Pain Present Pain Reported Location Left Hip Intensity 7 Scale Used Numeric (0 - 10) M4 OT- IP ADL's Start: 01/26/24 16:22 Freq: Status: Active Protocol: Document 01/27/24 11:26 [facility] (Rec: 01/27/24 11:40 [facility] [id number]) OT XDD-Mocl-Duaubpa Comments OT Self-Feeding Comments Not at meal time. OT ADL-Grooming Comments OT Grooming Comments Not performed. OT ADL-Oral Care Comments Oral Care Comments Not performed. OT ADL-Dressing General Eval Lower Body Dressing Ability Maximum Assistance Areas Needing Assistance Pants/Shorts,Socks,Shoes Comments OT Dressing Comments Emphasized to dress the RLE first and take out last. OT ADL-Toileting Comments OT Toileting Comments Pt not having to go at this time. OT ADL-Bathing Bathing Type Bathing Type Shower General Evaluation Bathing Ability Moderate Assistance Areas Needing Assistance Wash/Dry Back,Wash/Dry Lower Extremities Devices Bathing Equipment Shower Chair with Arms,Grab Bars Comments OT Bathing Comments Able to show pt's how to assist pt in the shower and would benefit from installing grab bars in the shower. Pt needing assist for his back and LE at this time. M5 OT- IP IADL's Start: 01/26/24 16:22 Freq: Status: Active Protocol: Document 01/26/24 16:23 [facility] (Rec: 01/26/24 16:36 [facility] [id number]) OT-Instrumental Activities of Daily Living Deficits IADL Deficits Identified Deficits Home Safety Awareness Awareness of Need for Assistance at Home Decreased Awareness Home Safety Comments Pt is a bit impulsive and still groggy at this time. Medication Management Medication Management Caregiver Administers Money Management Money Management Caregiver Provides Assistance Meal Preparation Meal Preparation Caregiver Provides Assist Director Business Systems Director Business Systems Caregiver Provides Assist M6 OT- IP Functional Cognition Start: 01/26/24 16:22 Freq: Status: Active Protocol: Document 01/27/24 11:26 [facility] (Rec: 01/27/24 11:40 [facility] [id number]) Cognitive Factors Limiting Selfcare Function Cognitive Ability Level of Alertness Confusional State Patient Orientation Name Attention Span Ability Capable of Focused Attention, Unable to Sustain Attention Ability to Follow Commands Able to Follow One Step Commands with Increased Time, Able to Follow One Step Commands with Repetition Memory Description Short Term Impaired Cognitive Comments Cognitive Assessment Comments Pt continues to be impulsive and needing cues to slow down and take smaller steps. M7 OT- IP Mobility and Balance Start: 01/26/24 16:22 Freq: Status: Active Protocol: Document 01/27/24 11:26 [facility] (Rec: 01/27/24 11:40 [facility] [id number]) OT-Transfer Assessment Sit to and From Stand Sit to and from Stand Standby Assistance,Contact Guard Assistance,Minimal Assistance Transfers Transfer Ability Standby Assistance,Contact Guard Assistance Technique Transfer Destination Bed,Chair,Shower Stall Transfer Technique Stand Step Pivot Devices Transfer Assistive Devices Gait Belt,Front Wheeled Walker Comments Mobility Comments SBA to SHEELA to stand pending on the level of surface standing up from to FWW. Able to also show pt's how to assist the pt if the gait belt is not available as well for safety as pt is very impulsive . Pt still needing MAX vc to follow his anterior precautions. OT- Balance Assessment Sitting Balance and Reactions Static Sitting Balance Ability Good Dynamic Sitting Balance Ability Good Standing Balance and Reactions Static Standing Balance Ability Good Dynamic Standing Balance Ability Fair M8 OT- IP Objective Assessments Start: 01/26/24 16:22 Freq: Status: Active Protocol: Document 01/26/24 16:23 [facility] (Rec: 01/26/24 16:36 [facility] [id number]) OT Gross Range of Motion Upper Extremity Range of Motion Assessment Within Functional Limits OT Strength Upper Extremity Strength Assessment Within Functional Limits M9 OT- IP Assessment and Plan Start: 01/26/24 16:22 Freq: Status: Active Protocol: Document 01/27/24 11:26 [facility] (Rec: 01/27/24 11:40 [facility] [id number]) OT Summary Assessment and Plan Potential Rehabilitation Potential Good Analytic Complexity at Evaluation Low Summary OT Impairments Pain,Strength,Balance, Functional Cognition, Functional Mobility,Grooming, Dressing,Toileting,Bathing, Toilet Transfers,Shower Transfers,Activity Tolerance Progress Towards Goals Progressing Toward Goals,Slow Progress due to Cognition Assessment Summary Pt doing well but his main barriers is decreased safety awareness and needing MAX vc to follow his precautions for all ADl and mobility needs. Able to train his to be able to assist the pt for all ADL needs. Pt to go home with 24/7 available assist and outpt PT. Goals Grooming Goal Independent Dressing Goal Standby Assistance Toileting Goal Standby Assistance Bathing Goal Standby Assistance Toilet Transfer Goal Independent Shower Transfer Goal Standby Assistance Patient/Caregiver Education Goal Demonstrate Energy Conservation and Pacing, Caregiver Independent Assisting Patient Days to Meet Goals 10 Frequency of Treatment Frequency Of Treatment Once a Day Treatment Plan OT Treatment Plan ADL Training,Functional Cognition Training,Functional Mobility,Patient/Family Education,Discharge Planning Discharge Recommendations OT Discharge Recommendations Home with 24/7 Assist Available,Outpatient PT Transportation Needs at Discharge Private Vehicle
--- NOTE | 2024-01-27 11:31 | PC.NURSE ---
Pt is dressed and ready for discharge home with Spouse. IV has been removed. Went over d/c instructions with Pt and Spouse-discussed d/c meds, time of last dose, reviewed stroke education, s/s of infection, showering, keeping the dressing in place until follow up, drinking plenty of fluids to prevent constipation or dehydration, no driving while taking narcotics and until cleared by MD, and follow up. Pt and Spouse denied further questions and Pt will be ready to d/c out right after lunch.
--- NOTE | 2024-01-27 12:41 | CM.DANOTE ---
Initial DCP Assessment Visit Note Reviewed EMR and team rounds for pt's medical status updates. Met with pt and spouse at bedside to introduce self and role, pt was found to be dressed, sitting in the recliner and expressing readiness for d/c home. Pt lives independently at baseline with his spouse in their own home in [place]. Spouse is transporting him home, no DCP needs identified at this time. Payor: [employer] Medicare Adv Attending: Dr. Kelly Solorzano Pt is a 73 year-old M post-op day-1 from a R-total hip arthroplasty surgery. He was found to be recovering well, states he is uncomfortable, but pain is tolerable. He shared that he has all of the DME needed for his home recovery, and is scheduled for Ortho f/u in [facility], and is already scheduled with OP PT. His will be assisting him with care and home management, no further resources needed, per pt/spouse. 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 Yes Advance Directives on File No History Provided By Patient,Significant Other, Medical Record Has Patient been admitted in last 30 No days? Prior Living Arrangements House Household Members spouse Type of transporation used prior to Drives own vehicle admit Independent with ADL's Yes Is patient alert and oriented? Yes Comment N/A Caregiver for Another No DME Already Rented / Owned Elevated Toilet Seat,FWW / Walker,Cane Patient/Family Preference OP PT Therapy Barriers to Discharge No Discharge Plan Home Community Services Physical Therapy Transportation Arrangement Spouse Referrals Initiated None needed Whiteboard Updated in Patient Room with Yes name and ext. # of Hide And Skin Fleshing Machine Operator Review Status In Process Please Provide Date Initial DC 01/27/24 Assessment Was Performed Pre-Anesthesia Assessment Start: 01/18/24 09:33 Freq: Status: Active Protocol: Document 01/18/24 09:33 [facility] (Rec: 01/18/24 10:31 [facility] [id number]) Pre-Anesthesia Assessment Preferred Name Felipe Patient Information Reviewed Via Phone Assessment Assessment Completed With Patient,Spouse Diagnostic Results BMP/CMP,CBC,EKG,Urinalysis Comment Outside labs scanned, EKG @ 08/22/22 Primary Care Provider Richard Beal Comment Clearance form 10/22/23 scanned Seen Specialist in Last 12 Months Yes Specialist Seen Orthopedist Primary Language Palestinian Color Finisher Required No Height 172.72 cm Weight 92.533 kg Body Mass Index (BMI) 31.0 Hearing Ability Hearing Impaired,Use of Hearing Aid Visual Assist Contacts,Magnifying Glass Dentition Type Teeth, Natural Present Barriers to Learning None Comment Pt denies any difficulties Hx Anesthesia Reactions No Hx Family Anesthesia Reaction No Hx Malignant Hyperthermia No Hx Blood Transfusions No Anesthesia Review Requested No: Pt and would like a spinal 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 No Does patient have BLOOM/SOB No Hx Sleep Apnea Yes CPAP/BIPAP use prescribed and used routinely Will Bring CPAP/BIPAP DOS Yes Comment Chronic cough Currently Taking a Beta Opal No Hx Chest Pain No Hx SOB No Hx Syncope or Dizziness No Anti-Coagulant Therapy No Has a Care Assistant No Cardiac Testing Yes: Echo @ [facility] 06/30/23 Hx Pacemaker/ICD No Pacemaker Rep Required? No Cardiac Clearance Received No Diet Type At Home Regular Dysphagia No Gastrointestinal Symptoms None Bladder Pattern Nocturia Urinary Catheter Present No Hx Urinary Self Catheterization No Diabetes No HgbA1C 5.3 Date 01/07/24 Hx Drug Resistant Organism No Presence of External or Internal Medical Yes: CPAP Devices Marital Status Lives With spouse Current Living Arrangements House Number of Floors (Floors) Two Floors Support System Spouse Does the Patient Have Assistance After Yes Surgery Patient Discharge Plan Description Return Home Comment Pt advised possible same day surgery per surgeon Feels Safe in Current Environment Yes Been Physically Hurt or Threatened By a No Person in Current Environment Do you have thoughts of harming yourself None or others? Are you currently considering suicide? No Do you have a plan to hurt yourself or No Plan others? Do You Have Any Spiritual Beliefs That No May Affect Your HC Choices? Do You Have Any Cultural Practices That No May Affect Your HC Choices? Comment Buddhist Who Can We Speak to About Patient's Care Family, friends Identifying Code for Release of Patient Declines to issue Information Health Care Proxy/Next of Kin Lucia () Health Care Proxy Emergency Contact Name Lucia () Emergency Contact Advance Directives? Yes Advance Directives on File No Requested Patient Bring Advanced Yes Directives DOS Power of Windows System Admin Yes Power of Windows System Admin Name Lucia () Power of Windows System Admin PAC Instructions Bring CPAP/BIPAP,Durable medical equipment,Medications to take/avoid,Nasal antibiotic ,No ETOH/petroleum product on skin DOS,NPO,Post-op transportation,Pre-surgical wash,Sensory aids,Sturdy shoes /comfortable clothes,Do not bring valuables and remove jewelry
--- NOTE | 2024-01-27 12:58 | PC.NURSE ---
Patient assisted to wheelchair by nurse using FWW. Done with out difficulty. Patient was escorted to private vehicle via nursing aid. Patient left in stabel condition. Belongings collected by and taken down to private vehicle.
== END 2024-01-27 12:59 | disposition home or self-care (01) ==
LOC: OR 09:07 → AC 09:07
PROVIDERS: PCP Family Medicine; Referring Provider Orthopaedic Surgery; Visit Provider Orthopaedic Surgery
PROC: (CPT 27130; principal; 2024-01-26 10:45)
DX: M16.11 Unilateral primary osteoarthritis, right hip (principal)
CPT/HCPCS: 27130; 36415; 73502; 85014; 85018; 97162; 97165; 97530; 97535; C1776; C9290; J0171; J0690; J1100; J2250; J2405; J2704; J3010

== ENCOUNTER 2024-10-23 08:04 | Emergency (ER) | payer MEDICARE, SELFPAY ==
[2024-01-26 14:22] VITALS: BMI 29.9
[2024-10-23] VITALS (24 sets, daily range): BP systolic 87–106; BP diastolic 56–69; PULSE 43–57; RESP 12–28; O2SAT 96–100; BMI 28.6
--- NOTE | 2024-10-23 08:08 | EKG_ITS ---
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
--- NOTE | 2024-10-23 08:16 | DI.RAD.S_ITS ---
PROCEDURE: XR CHEST 1V INDICATIONS: chest pain TECHNIQUE: One view of the chest was acquired. COMPARISON: None. FINDINGS: Surgical changes and devices: None. Lungs and pleura: Lungs are clear. No pleural effusions or pneumothorax. Mediastinum: Mediastinal contours appear normal. Heart size is normal. Bones and chest wall: No suspicious bony lesions. Overlying soft tissues appear unremarkable. IMPRESSION: No acute cardiopulmonary abnormality is seen. Dictated by: Fracisco Doe M.D. on 10/23/2024 at 8:07 Approved by: Farcisco Doe M.D. on 10/23/2024 at 8:08
[2024-10-23] MEDS: SODIUM CHLORIDE 0.9% 1,000 ML 1000 ML IV (08:35)
--- NOTE | 2024-10-23 08:35 | DI.CT.S_ITS ---
PROCEDURE: CT HEAD/BRAIN WO CON INDICATIONS: fall on thinners TECHNIQUE: Noncontrast 4.5 mm thick angled axial sections acquired from the foramen magnum to the vertex, with coronal and sagittal reformats. For radiation dose reduction, the following was used: automated exposure control, adjustment of mA and/or kV according to patient size. COMPARISON: None. FINDINGS: Image quality: Diagnostic. CSF spaces: Basal cisterns are patent. No extra-axial fluid collections. The ventricles are symmetric in size and shape. Brain: No intracranial bleeds or masses. There is cerebral volume loss for age, with resultant ventricular and sulcal prominence. There are periventricular and deep white matter chronic small vessel ischemic changes. There is intracranial internal carotid artery atherosclerosis. Skull and face: Calvarium and visualized facial bones appear intact, without suspicious lesions. Sinuses: Visualized sinuses and mastoids are clear. IMPRESSION: No acute intracranial pathology. Dictated by: Fracisco Doe M.D. on 10/23/2024 at 8:08 Approved by: Fracisco Doe M.D. on 10/23/2024 at 8:10
[2024-10-23 08:37] LABS: Add Manual Diff / Slide Review NO; Basophils Absolute Auto 100 /uL (0-100); Basophils Percent Auto 1.2 % (0-2); Eosinophils Absolute Auto 300 /uL (0-450); Eosinophils Percent Auto 4.6 % (2-4); Hematocrit 40.5 % (41-53); Hemoglobin 13.6 g/dL (13.5-17.5); Lymphocytes Absolute Auto 1100 /uL (1100-4500); Lymphocytes Percent Auto 19.5 % (25-40); Mean Corpuscular HGB Conc 33.7 % (30-36); Mean Corpuscular Hemoglobin 30.3 PG (26-34); Monocytes Absolute Auto 600 /uL (0-900); Monocytes Percent Auto 10.8 % (3-14); Neutrophils Absolute Auto 3600 /uL (1500-7000); Neutrophils Percent Auto 63.9 % (50-75); Platelet Count 146 X10^3/uL (150-400); Red Cell Distribution Width 13.9 % (11.6-14.8); White Blood Cell Count 5.7 X10^3/uL (4.5-11.0)
[2024-10-23 08:46] LABS: INR 1.3 (0.9-1.3); Prothrombin Time 14.5 SECONDS (9.4-12.5)
[2024-10-23 08:49] LABS: PTT Partial Thromboplastin Tim 31 SECONDS (25.1-36.5)
[2024-10-23 08:51] LABS: Alanine Aminotransferase 37 IU/L (<50); Albumin 3.9 g/dL (3.5-5.0); Albumin Globulin Ratio 1.6 (1.0-2.8); Alkaline Phosphatase 107 U/L (38-126); Aspartate Aminotransferase 27 IU/L (17-59); BUN Creatinine Ratio 29.3 (6-22); Bilirubin Total 0.5 mg/dL (0.2-1.3); Blood Urea Nitrogen 27 mg/dL (9-20); Carbon Dioxide 25 mmol/L (22-32); Chloride 107 mmol/L (98-107); Creatine Kinase 57 U/L (55-170); Estimated Glomerular Filt Rate > 60 mL/min (>60); Globulin 2.4 g/dL (1.7-4.1); Glucose 103 mg/dL (80-110); HEMOLYSIS < 15 (0-50); Lipase 115 U/L (23-300); Potassium 4.9 mmol/L (3.4-5.1); Sodium 138 mmol/L (137-145); Total Protein 6.3 g/dL (6.3-8.2)
[2024-10-23 09:02] LABS: NT-proBNP (BNP-Adult 18+) 132 pg/mL (<125); Troponin I < 0.012 ng/mL (0.01-0.034)
[2024-10-23 09:10] LABS: Lactate (Lactic Acid) 1.6 mmol/L (0.7-2.1)
[2024-10-23 09:13] LABS: Influenza A - CEPHEID Flu A NEGATIVE (NEGATIVE); Influenza B - CEPHEID Flu B NEGATIVE (NEGATIVE); Respiratory Syncytial Virus Negative (Negative)
[2024-10-23 09:15] LABS: COVID-19 CEPHEID 4-PLEX PCR Negative (Negative)
--- NOTE | 2024-10-23 09:28 | ED.GENADULT ---
HPI - General Adult General Chief complaint: Weakness Stated complaint: SOB/Weakness Time Seen by Provider: 10/23/24 08:17 Source: patient Mode of arrival: Family Vehicle History of Present Illness HPI narrative: 73-year-old male with history of CAD status post prior coronary stenting, had prior fall associated with previous AL and subdural hematoma per 's report, taking Plavix but no other anticoagulation agents, having ongoing diarrhea with negative workup multiple specimens thus far, this morning fell out of bed, felt anxious, unclear if he struck his head, had complain of shortness of breath. EMS transport, noted to have bradycardia, was given IV atropine x2 doses. He denies pain to his head, neck, upper back, mid lower back, anterior chest, posterior chest, abdomen, pelvis, lower extremities, upper extremities. He denies focal weakness to face arm or leg. He denies focal numbness to face arm or leg. He would not have any sensations of palpitations or fast heart rate. believes he looked a little diaphoretic after the fall. No known loss of consciousness. No nausea or vomiting. He feels better. Metoprolol on triage med list. Related Data Home Medications Medication Instructions Recorded Confirmed acetaminophen 325 mg capsule 325 mg PO Q4-6H PRN Pain 01/18/24 10/23/24 atorvastatin 80 mg tablet 80 mg PO QPM 01/18/24 10/23/24 cetirizine 10 mg tablet (Zyrtec) 10 mg PO DAILY 01/18/24 10/23/24 finasteride 5 mg tablet 5 mg PO DAILY 01/18/24 10/23/24 tamsulosin 0.4 mg capsule 0.8 mg PO BEDTIME 01/18/24 10/23/24 clopidogrel 75 mg tablet 75 mg PO DAILY 10/23/24 10/23/24 losartan 25 mg tablet 25 mg PO DAILY 10/23/24 10/23/24 metoprolol succinate 25 mg 12.5 mg PO BEDTIME 10/23/24 10/23/24 tablet,extended release 24 hr Previous Rx's Medication Instructions Recorded acetaminophen 325 mg tablet 650 mg (2 x 325 mg) PO Q6H PRN 01/27/24 Fever/Mild Pain (1-3) #60 tabs aspirin 81 mg tablet,delayed 81 mg PO BID #60 tabs 01/27/24 release Allergies Allergy/AdvReac Type Severity Reaction Status Date / Time No Known Drug Allergies Allergy Verified 10/23/24 08:16 Patient History Medical History (Updated 10/23/24 @ 11:48 by Tre Groves MD) History of COVID-19 (~2020) Osteoarthritis HLD (hyperlipidemia) HTN (hypertension) Hearing impaired RADHA on CPAP Enlarged prostate TIA (transient ischemic attack) (06/2023) Surgical History Hx of arthroscopy of left knee Social History household members: spouse Smoking Status: Never smoker alcohol intake: current Smoking Status: Never smoker alcohol intake frequency: holidays/special occasions only Exam Narrative Exam Narrative: GENERAL: Well-developed patient, in mild distress. HEAD: Atraumatic. Normocephalic. EYES: Pupils equal round and reactive. Extraocular motions intact. No scleral icterus. No injection or drainage. ENT: Nose without bleeding, purulent drainage. Throat without erythema, tonsillar hypertrophy or exudate. Airway patent. NECK: Trachea midline. Non tender CARDIOVASCULAR: Regular rate and rhythm without murmurs, gallops, or rubs. RESPIRATORY: Clear to auscultation. Breath sounds equal bilaterally. No wheezes, rales, or rhonchi. GASTROINTESTINAL: Abdomen soft, non-tender, nondistended. EXTREMITIES: No edema or joint tenderness. BACK: Nontender without deformity or crepitance. No flank tenderness. NEURO: AOx3. Motor functions grossly nonfocal SKIN: No rash or erythema of visible areas Initial Vital Signs Initial Vital Signs: Vital Signs Pulse Rate 56 L 10/23/24 08:07 Course Orders Ordered: Discontinued Medications Albuterol (Albuterol 2.5 Mg/3 Ml Neb (Adult)) 2.5 mg INH NOW ONE Stop: 10/23/24 10:08 Last Admin: 10/23/24 11:14 Dose: Not Given Documented By: DAWIT Aspirin (Aspirin 81 Mg Chew Tab) 324 mg PO NOW ONE Stop: 10/23/24 08:17 Last Admin: 10/23/24 08:44 Dose: Not Given Documented By: DAWIT Sodium Chloride (Normal Saline 0.9%) 1,000 mls @ 1,000 mls/hr IV BOLUS ONE Stop: 10/23/24 09:34 Last Infusion: 10/23/24 09:13 Dose: Infused Documented By: Admin: 10/23/24 08:35 Dose: 1,000 mls/hr Documented By: DAWIT Vital Signs Vital signs: Vital Signs - 8 hr 10/23/24 08:07 10/23/24 08:08 10/23/24 08:08 Pulse Rate 56 L 57 L Respiratory Rate Blood Pressure 103/68 Pulse Oximetry Oxygen Delivery Method 10/23/24 08:09 10/23/24 08:15 10/23/24 08:30 Pulse Rate 55 L 53 L 53 L Respiratory Rate 12 12 15 Blood Pressure 103/68 Pulse Oximetry 96 96 96 Oxygen Delivery Method Room Air 10/23/24 08:30 10/23/24 08:31 10/23/24 08:31 Pulse Rate 53 L Respiratory Rate 23 Blood Pressure 87/60 L 91/60 Pulse Oximetry 96 Oxygen Delivery Method Room Air 10/23/24 08:33 10/23/24 08:33 10/23/24 08:34 Pulse Rate 55 L 53 L Respiratory Rate 19 23 Blood Pressure 91/60 Pulse Oximetry 97 97 Oxygen Delivery Method 10/23/24 08:34 10/23/24 08:50 10/23/24 08:50 Pulse Rate 56 L Respiratory Rate 28 H Blood Pressure 92/61 103/60 Pulse Oximetry 98 Oxygen Delivery Method 10/23/24 09:00 10/23/24 09:00 10/23/24 09:15 Pulse Rate 48 L 53 L Respiratory Rate 18 24 Blood Pressure 102/61 Pulse Oximetry 98 98 Oxygen Delivery Method 10/23/24 09:15 10/23/24 09:30 10/23/24 09:30 Pulse Rate 48 L Respiratory Rate 18 Blood Pressure 102/61 103/63 Pulse Oximetry 98 Oxygen Delivery Method 10/23/24 09:45 10/23/24 10:00 10/23/24 10:00 Pulse Rate 53 L 54 L Respiratory Rate 23 28 H Blood Pressure 106/65 Pulse Oximetry 100 100 Oxygen Delivery Method 10/23/24 10:15 10/23/24 10:30 10/23/24 10:32 Pulse Rate 48 L 52 L 49 L Respiratory Rate 24 Blood Pressure Pulse Oximetry 98 98 98 Oxygen Delivery Method 10/23/24 10:32 10/23/24 10:45 Pulse Rate 51 L Respiratory Rate 20 Blood Pressure 100/60 Pulse Oximetry 99 Oxygen Delivery Method Medical Decision Making Lab Data Lab results reviewed: Yes I reviewed the patient's lab results. Lab results narrative: White blood cell count 5700, hemoglobin 13.6, platelets adequate. Glucose 103. BUN 27 with creatinine 0.92. Sodium 138, potassium 4.9, serum CO2 25. Liver functions and lipase normal. Troponin negative/unmeasurable. BNP not elevated. COVID RSV flu negative. 10/23/24 08:30 10/23/24 08:30 Labs: Lab Results 10/23/24 10/23/24 Range/Units 08:30 10:30 WBC 5.7 (4.5-11.0) X10^3/uL RBC 4.50 (4.5-5.9) X10^6/uL Hgb 13.6 (13.5-17.5) g/dL Hct 40.5 L (41-53) % MCV 90.0 (80-100) fL MCH 30.3 (26-34) PG MCHC 33.7 (30-36) % RDW 13.9 (11.6-14.8) % Plt Count 146 L (150-400) X10^3/uL Neut % (Auto) 63.9 (50-75) % Lymph % (Auto) 19.5 L (25-40) % [place] % (Auto) 10.8 (3-14) % Eos % (Auto) 4.6 H (2-4) % Baso % (Auto) 1.2 (0-2) % Neut # (Auto) 3600 (4751-9336) /uL Lymph # (Auto) 1100 (9185-1792) /uL [place] # (Auto) 600 (0-900) /uL Eos # (Auto) 300 (0-450) /uL Baso # (Auto) 100 (0-100) /uL PT 14.5 H (9.4-12.5) SECONDS INR 1.3 (0.9-1.3) APTT 31 (25.1-36.5) SECONDS Sodium 138 (137-145) mmol/L Potassium 4.9 (3.4-5.1) mmol/L Chloride 107 (98-107) mmol/L Carbon Dioxide 25 (22-32) mmol/L BUN 27 H (9-20) mg/dL Creatinine 0.92 (0.66-1.25) mg/dL Estimated GFR > 60 (>60) mL/min BUN/Creatinine Ratio 29.3 H (6-22) Glucose 103 (80-110) mg/dL Lactate 1.6 (0.7-2.1) mmol/L Calcium 9.0 (8.4-10.2) mg/dL Magnesium 2.0 (1.6-2.3) mg/dL Total Bilirubin 0.5 (0.2-1.3) mg/dL AST 27 (17-59) IU/L ALT 37 (<50) IU/L Alkaline Phosphatase 107 (38-126) U/L Total Creatine Kinase 57 (55-170) U/L Troponin I < 0.012 < 0.012 (0.01-0.034) ng/mL NT-Pro-B Natriuret Pep 132 H (<125) pg/mL Total Protein 6.3 (6.3-8.2) g/dL Albumin 3.9 (3.5-5.0) g/dL Globulin 2.4 (1.7-4.1) g/dL Albumin/Globulin Ratio 1.6 (1.0-2.8) Lipase 115 (23-300) U/L SARS-CoV-2 (PCR) Negative (Negative) Influenza A (RT-PCR) Flu a negative (NEGATIVE) Influenza B (RT-PCR) Flu b negative (NEGATIVE) RSV (PCR) Negative (Negative) Imaging Data Chest x-ray: Radiologist's Impression: [address] [address] XRay Report Signed Patient: Rashid Holcomb MR#: [id number] : 1950 Acct:[id number] Age/Sex: 73 / M Date of Service: 10/23/24 Loc: ED Accession Number: [id number] Procedure: XR chest 1V Ordering Provider: Tre Groves MD PROCEDURE: XR CHEST 1V INDICATIONS: chest pain TECHNIQUE: One view of the chest was acquired. COMPARISON: None. FINDINGS: Surgical changes and devices: None. Lungs and pleura: Lungs are clear. No pleural effusions or pneumothorax. Mediastinum: Mediastinal contours appear normal. Heart size is normal. Bones and chest wall: No suspicious bony lesions. Overlying soft tissues appear unremarkable. IMPRESSION: No acute cardiopulmonary abnormality is seen. Dictated by: Fracisco Doe M.D. on 10/23/2024 at 8:07 Approved by: Fracisco Doe M.D. on 10/23/2024 at 8:08 CT scan - head: Radiologist's Impression: [address] [address] [address] Scan Report Signed Patient: Rashid Holcomb MR#: [id number] : 1950 Acct:[id number] Age/Sex: 73 / M Date of Service: 10/23/24 Loc: ED Accession Number: [id number] Procedure: CT head/brain wo con Ordering Provider: Tre Groves MD PROCEDURE: CT HEAD/BRAIN WO CON INDICATIONS: fall on thinners TECHNIQUE: Noncontrast 4.5 mm thick angled axial sections acquired from the foramen magnum to the vertex, with coronal and sagittal reformats. For radiation dose reduction, the following was used: automated exposure control, adjustment of mA and/or kV according to patient size. COMPARISON: None. FINDINGS: Image quality: Diagnostic. CSF spaces: Basal cisterns are patent. No extra-axial fluid collections. The ventricles are symmetric in size and shape. Brain: No intracranial bleeds or masses. There is cerebral volume loss for age, with resultant ventricular and sulcal prominence. There are periventricular and deep white matter chronic small vessel ischemic changes. There is intracranial internal carotid artery atherosclerosis. Skull and face: Calvarium and visualized facial bones appear intact, without suspicious lesions. Sinuses: Visualized sinuses and mastoids are clear. IMPRESSION: No acute intracranial pathology. Dictated by: Fracisco Doe M.D. on 10/23/2024 at 8:08 Approved by: Fracisco Doe M.D. on 10/23/2024 at 8:10 ECG Data Attestation: I personally reviewed and interpreted this ECG as follows: Interpretation: Normal sinus rhythm with a rate of 61, incomplete right bundle branch block. OR 130, QRS 92, QTC 450. [facility] Narrative Medical decision making narrative: 73-year-old male with history of CAD, history of previous trauma related subdural hematoma, fell out of bed this morning, seemed a little diaphoretic afterward per , some shortness of beath, no loss of consciousness, denies chest pain, denies any injuries. EMS transport, bradycardia, given atropine x2 doses during transport. Sinus bradycardia 50s on monitor. Prolonged noted on his chronic medication list. Labs sent. CT head ordered from triage. Chest x-ray no acute changes, see radiology report. CT head no acute changes, see radiology report. Initial troponin negative, interval troponin also negative. On athletic monitor patient has heart rate 40-50s, does take metoprolol. Might have had a syncopal/near syncopal episode related to bradycardia, prior atropine. Consider admission on telemetry with holding of his metoprolol. Patient and seemed agreeable to this plan. We will contact hospitalist. 1145, Case discussed with hospitalist Dr. Isidro, trial of road testing, if not symptomatic would recommend outpatient holding of metoprolol and follow up with PCP. Tolerated well, home with family, discontinue metoprolol advised, close follow-up with PCP advised Discharge Plan Departure Patient Disposition: Home Clinical Impression: Bradycardia, Fall Activity Restrictions/Additional Instructions: History of known coronary artery disease and fall from bed, heart rate was apparently low enough for EMS to give atropine doses, heart rate seemed to be stable here, metoprolol is on your medication list, which can slow your heart rate down. Blood pressure stable here. Heart rate seemed to be okay and actually increased when your attempted with ambulation and increased activity, which is reassuring. EKG and serial blood tests not suggestive of heart attack at this time. History of subdural hematoma noted, CT scan of the head performed and did not show subdural hematoma at this time. Case discussed with hospitalist Dr. Isidro who suggested not being admitted for now, suggested holding your metoprolol dose and following up with your regular doctor early next week. You felt comfortable with this plan. Stop taking your metoprolol for now. You might also consider holding your finasteride dose of medication if it might have been related to low blood pressure associated with low heart rate, per Dr. Isidro's suggestion. Follow up with your regular provider early next week. Return to this/nearest emergency department for any change worsening symptoms or any concerns prior. Prescriptions: No Action atorvastatin 80 mg Tablet 80 mg PO QPM cetirizine [Zyrtec] 10 mg Tablet 10 mg PO DAILY tamsulosin 0.4 mg Capsule 0.8 mg PO BEDTIME finasteride 5 mg Tablet 5 mg PO DAILY acetaminophen 325 mg Capsule 325 mg PO Q4-6H PRN (Reason: Pain) acetaminophen 325 mg Tablet 650 mg PO Q6H PRN (Reason: Fever/Mild Pain (1-3)) Qty: 60 0RF aspirin 81 mg Tablet,Delayed Release (Dr/Ec) 81 mg PO BID Qty: 60 0RF metoprolol succinate 25 mg tablet extended release 24 hr 12.5 mg PO BEDTIME clopidogrel 75 mg tablet 75 mg PO DAILY losartan 25 mg tablet 25 mg PO DAILY Referrals: Richard Beal MD [Primary Care Provider] - Stand Alone Forms: Patient Portal/API/Survey
[2024-10-23 11:08] LABS: Troponin I < 0.012 ng/mL (0.01-0.034)
--- NOTE | 2024-10-23 11:16 | PC.NURSE ---
Dr. Groves aware of vital signs.
== END 2024-10-23 12:08 | disposition home or self-care (01) ==
PROVIDERS: Emergency Provider Emergency Medicine; PCP Family Medicine
DX: R00.1 Bradycardia, unspecified (principal); R07.9 Chest pain, unspecified; I25.2 Old myocardial infarction; Z79.01 Long term (current) use of anticoagulants; W06.XXXA Fall from bed, initial encounter
CPT/HCPCS: 0241U; 70450; 71045; 80053; 82550; 83605; 83690; 83735; 83880; 84484; 85025; 85610; 85730; 93005; 93010; 96360; 99284